=== PATIENT | male | born 1960 | race Caucasian/White ===

== ENCOUNTER → 2017-12-11 13:00 | Outpatient (CLI) | payer OTHER, SELFPAY | PROVIDERS: Family Provider Family Medicine; PCP Family Medicine | DX: Z23 Encounter for immunization (principal) | CPT/HCPCS: 90471; 90686 ==

== ENCOUNTER 2018-04-19 16:15 | Emergency (ER) | payer OTHER, SELFPAY ==
[2018-04-19 16:23] VITALS: BP 138/86; PULSE 79; RESP 16; TEMP 37; O2SAT 97; BMI 25.0
[2018-04-19] MEDS: TET,DIPH,PERTUSS(ACELL),VAC/PF 0.5 ML SYRINGE IM (17:20)
--- NOTE | 2018-04-19 18:34 | ED_ITS ---
HPI - Wound/Laceration General Chief Complaint: Wound/Laceration Stated Complaint: LACERATION OF THE FOREHEAD Time Seen by Provider: 04/19/18 18:34 Source: patient Mode of arrival: ambulatory Limitations: no limitations History of Present Illness HPI narrative: Patient is a 57-year-old male who earlier today was doing some sanding when the makayla hit a electrical box. The cover the electrical blocks came off and bounce off a wall and hit him in the forehead. This happened several hours ago. He does not know when his last tetanus shot was. Did not lose consciousness. Does have a cut on his forehead. Other than a bandage has not done anything for the cup prior to arrival. Related Data Previous Rx's Medication Instructions Recorded epinephrine 0 IM SEE INSTRUCTIONS #1 ea 11/06/12 Allergies Allergy/AdvReac Type Severity Reaction Status Date / Time No Known Drug Allergies Allergy Verified 04/19/18 16:20 Review of Systems Constitutional Denies fever(s) and Denies headache(s) Eyes Denies blurry vision ENT Ears, Nose, Mouth, and Throat: Denies dizziness and Denies headache(s) Integumentary/Breasts Comments: Cut to forehead Neurologic Denies dizziness and Denies headache(s) Hematologic/Lymphatic Comments: Not on blood thinners PFSH Medical History Healthy adult (Acute) Social History Smoking Status: Never smoker Social History Smoking Status: Never smoker Exam Initial Vital Signs Initial Vital Signs: Vital Signs Temperature 98.6 F 04/19/18 16:23 Pulse Rate 79 04/19/18 16:23 Respiratory Rate 16 04/19/18 16:23 Blood Pressure 138/86 04/19/18 16:23 Pulse Oximetry 97 04/19/18 16:23 Const General: cooperative, healthy appearing, comfortable, well developed, well groomed and No acute distress Orientation: alert, awake and oriented x3 HENMT Head: other (3 cm laceration to the right side of the forehead above the eye.) Ears: hearing grossly normal bilaterally Nose: external nose normal Resp Effort & Inspection: normal respiratory effort Cardio Rate: regular rate Skin Other: 3 cm laceration to the right-side forehead. Neuro Other: Sensation intact to the right side of the forehead. Patient able to do raise eyebrows without any problems. Eyelid not drooping on the right. Extrem General: normal to inspection and capillary refill normal Psych Appearance: grossly normal and well kempt Procedures Laceration Repair Laceration 1: Site: face (Forehead) Side (If applicable): right Size (cm): 3 Description: linear Depth: simple, single layer Local Anesthetic: lidocaine 1% Amount of anesthesia used (mL): 3 Pre-repair: irrigated extensively and deep structures intact Skin layer closed with: other (Chromic) Size (cm): 5-0 Number of sutures: 5 Technique: simple, interrupted Course Orders Ordered: Discontinued Medications Diphtheria/Tetanus/Acell Pertussis (Adacel) 0.5 ml IM .ONCE ONE Stop: 04/19/18 16:30 Last Admin: 04/19/18 17:20 Dose: 0.5 ml Vital Signs - 8 hr 04/19/18 16:23 Temperature 98.6 F Pulse Rate 79 Respiratory Rate 16 Blood Pressure 138/86 Pulse Oximetry 97 MDM - Wound/Laceration MDM Narrative Medical decision making narrative: Tetanus was updated. Patient is neurovascular intact. We discussed the options to include Dermabond and Steri- Strips versus suturing. Patient opted for suturing. He was informed there would be a scar. There is no signs of deep structure involvement. He was given care instructions and return precautions. He expressed understanding and agreement plan. Discharge Plan Departure Patient Disposition: Home Clinical Impression: Laceration Instructions: DI for Laceration Repair Activity Restrictions/Additional Instructions: Tomorrow you can shower like normal and use soap and water like normal. Do not scrub the area because the stitches are small. The stitches are absorbable hand should come out on their own however if they are not out by 7 days the do need to be removed. Return to the emergency department for any new or worsening symptoms Prescriptions: No Action epinephrine 0.3 MG/0.3 ML auto-injector IM SEE INSTRUCTIONS Qty: 1 RF: 2 Referrals: Mikael Birch MD [Primary Care Provider] -
[2018-04-19 19:17] VITALS: BP 151/97; PULSE 71; RESP 17; O2SAT 97
== END 2018-04-19 19:28 | disposition home or self-care (01) ==
PROVIDERS: Emergency Provider Emergency Medicine; Family Provider Family Medicine; PCP Family Medicine
DX: S01.81XA Laceration without foreign body of other part of head, initial encounter (principal); W22.8XXA Striking against or struck by other objects, initial encounter
CPT/HCPCS: 12013; 90471; 99283; 90715

== ENCOUNTER → 2018-11-28 12:06 | Outpatient (CLI) | payer OTHER, SELFPAY | PROVIDERS: PCP Student in an Organized Health Care Education/Training Program | DX: Z23 Encounter for immunization (principal) | CPT/HCPCS: 90471; 90686 ==

== ENCOUNTER → 2018-12-04 14:12 | Outpatient (CLI) | payer OTHER, SELFPAY ==
[2018-12-04 16:47] LABS: Vitamin D 25 Hydroxy (D3) 30.2 ng/mL (30.0-100.0)
[2018-12-04 17:01] LABS: HEMOLYSIS < 15 (0-50)
[2018-12-04 17:06] LABS: Alanine Aminotransferase 21 IU/L (21-72); Albumin 4.3 g/dL (3.5-5.0); Albumin Globulin Ratio 1.4 (1.0-2.8); Alkaline Phosphatase 60 U/L (38-126); Aspartate Aminotransferase 25 IU/L (17-59); Bilirubin Total 0.6 mg/dL (0.2-1.3); Bilirubin Unconjugated 0.5 mg/dL (0.0-1.1); Cholesterol 229 mg/dL (140-199); HDL Cholesterol 44 mg/dL (40-60); LDL Cholesterol Calculated 139 mg/dL (<100); Total Protein 7.3 g/dL (6.3-8.2); Triglycerides 230 mg/dL (35-150)
[2018-12-05 15:42] LABS: Prostate Specific Antigen Scrn 0.377 ng/mL (0.1-4.0)
== END ==
PROVIDERS: PCP Student in an Organized Health Care Education/Training Program; Visit Provider Student in an Organized Health Care Education/Training Program
DX: Z12.5 Encounter for screening for malignant neoplasm of prostate (principal); Z13.220 Encounter for screening for lipoid disorders; E55.9 Vitamin D deficiency, unspecified; E78.2 Mixed hyperlipidemia
CPT/HCPCS: 36415; 80061; 80076; 82306; G0103

== ENCOUNTER 2019-02-21 09:59 | Emergency (ER) | payer OTHER, SELFPAY ==
[2019-02-21 10:05] VITALS: BP 145/89; PULSE 72; RESP 12; TEMP 36.4; O2SAT 97
[2019-02-21] MEDS: IBUPROFEN 400 MG TABLET 800 MG PO (10:13)
[2019-02-21] MEDS: ACETAMINOPHEN 325 MG TABLET 975 MG PO (10:13)
--- NOTE | 2019-02-21 10:47 | ED_ITS ---
HPI - Back Pain/Injury General Chief Complaint: Back Pain/Injury Stated Complaint: Hurt his back at work Time Seen by Provider: 02/21/19 10:47 Source: patient Limitations: no limitations History of Present Illness HPI Narrative: This is a 58-year-old male who comes to the emergency with complaint of midthoracic upper lumbar back pain. Patient was at work about 8 or 9:00 a.m. this morning. He was lifting a desk that was moderately heavy but also awkward up into a truck. The bottom of the does cough on the truck and he tried to lift a little bit higher he felt a sudden spasm in his back across both sides. Patient states he doesn't have any radiation down into his legs. No numbness, no tingling. Movement does make it worse. He has not any loss of bowel or bladder control. No fevers. He denies any other symptoms. He has had very remote history of back issues many years ago. He has not had problems in many many years. Patient denies any prior surgeries. He has a bee allergy but no other medication allergies. He is not on any regular medications daily. Related Data Home Medications Medication Instructions Recorded Confirmed epinephrine 0.3 mg IM PRN PRN 02/21/19 02/21/19 Previous Rx's Medication Instructions Recorded cyclobenzaprine 10 mg PO TID PRN #20 tab 02/21/19 Allergies Allergy/AdvReac Type Severity Reaction Status Date / Time No Known Drug Allergies Allergy Verified 02/21/19 10:08 wasp venom Allergy Intermediate Uncoded 12/03/18 09:10 Review of Systems Review of Systems ROS Unobtainable: All systems reviewed & are unremarkable except as noted in HPI and below Patient History Medical History Chicken pox (Resolved) Healthy adult (Acute) Hearing loss (Chronic) Measles (Resolved) Mumps (Resolved) Surgical History Anesthesia (Resolved) History of appendectomy (Resolved ~07/1975) History of hernia repair (Resolved ~06/2009) History of left knee surgery (Resolved ~01/2015) History of neck surgery (Resolved ~10/2007) History of right knee surgery (Inactive ~05/2016) Family History Father History of coronary artery bypass graft Congestive heart failure Anemia Pacemaker Cancer Diabetes mellitus History of heart disease Hyperlipidemia Hypertension Mother Cataracts, bilateral Hypertension Hyperlipidemia Brother Obesity Brother Neurologic disorder Sister Adopted Grandfather Diabetes mellitus Grandmother Cancer Daughter Asthma Anxiety Daughter Thyroid disorder Social History Smoking Status: Never smoker Smoking Status: Never smoker alcohol intake frequency: 0-2 drinks per day Substance Use Type: does not use Exam Narrative Exam Narrative: GENERAL: Alert and oriented x three, well-nourished, well- appearing male in mild to moderate distress. HEENT: Head normocephalic, atraumatic, EOMI, pupils reactive, face symmetric, moist mucous membranes NECK: Supple, full range of motion CARDIOVASCULAR: Regular rate and rhythm without murmurs, rubs or gallops. RESPIRATORY: Breath sounds equal bilaterally, no wheezes rales or rhonchi. ABDOMEN: Soft, nontender. Normoactive bowel sounds all 4 quadrants. No guarding or rebound, rigidity, no mass : No CVA tenderness BACK: No cervical, thoracic or lumbar vertebral point tenderness. Patient has decreased range of motion. Patient prefers to sit very upright. Patient's gait is not tested. Rectal exam is deferred. Muscle strength is 5/5 in lower extremities with full plantar and dorsiflexion. Dorsalis pedis and tibialis pulses are 2+ and lower extremities. Sensation is intact in the lower extremities. EXTREMITIES: Normal range of motion, no clubbing or edema. Neurovascularly intact NEUROLOGICAL: Cranial nerves II through XII grossly intact. Moving all extremities SKIN: Warm, dry, no petechiae, no rashes or lesions. Initial Vital Signs Initial Vital Signs: Vital Signs Temperature 97.6 F 02/21/19 10:05 Pulse Rate 72 02/21/19 10:05 Respiratory Rate 12 02/21/19 10:05 Blood Pressure 145/89 H 02/21/19 10:05 Pulse Oximetry 97 02/21/19 10:05 Course Orders Ordered: ED Orders 02/21/19 11:00 XR t and l spine 2 to 3 views Stat Discontinued Medications Acetaminophen (Tylenol) 975 mg PO NOW ONE Stop: 02/21/19 10:09 Last Admin: 02/21/19 10:13 Dose: 975 mg Documented by: STONE Ibuprofen (Advil) 800 mg PO NOW ONE Stop: 02/21/19 10:09 Last Admin: 02/21/19 10:13 Dose: 800 mg Documented by: STONE Vital Signs Vital signs: Vital Signs - 8 hr 02/21/19 10:05 Temperature 97.6 F Pulse Rate 72 Respiratory Rate 12 Blood Pressure 145/89 H Pulse Oximetry 97 MDM - Back Pain/Injury Imaging Data thoracolumbar xray: Radiologist's Impression: [address] [address] XRay Report Signed Patient: Teddy Church PMR#: [id number] : [id number]:[id number] Age/Sex: 58 / MDate of Service: 02/21/19 Loc: ED Accession Number: [id number] Procedure: XR t and l spine 2 to 3 views Ordering Provider: Diya Mckinnon D.O. PROCEDURE: XR T AND L SPINE 2 TO 3 VIEWS INDICATIONS: mid back pain, lifting desk TECHNIQUE: 2 views acquired of the thoracolumbar spine. COMPARISON: [facility], THORACIC SPINE 3 VIEWS, 01/14/2008, 13:39. FINDINGS: Bones: No acute fractures or dislocations. Visualized inferior ribs appear intact. No suspicious bony lesions. Soft tissues: No suspicious soft tissue calcifications. IMPRESSION: No evidence acute bony abnormality of the thoracolumbar spine. If clinical suspicion and/or symptoms persist, further assessment with repeat plain films, or advanced imaging (e.g., CT, MRI, or bone scan) may be helpful for further assessment. Dictated by: Nabil Thomas M.D. on 02/21/2019 at 11:37 Approved by: Nabil Thomas M.D. on 02/21/2019 at 11:37 [facility] Narrative Medical decision making narrative: Patient had tylenol and ibuprofen and has had some improvement along with ice pack. Defers any additional meds at this time. Plan for conservative management, NSAIDs and Tylenol as needed along with muscle relaxer as needed. Red flag symptoms were discussed and reasons to return emergently. L&I form filled out. Discharge Plan Departure Patient Disposition: Home Clinical Impression: Back pain, thoracic Discharge Date/Time: 02/21/19 12:06 Instructions: DI for Back Spasm, DI for Back Strain or Sprain Activity Restrictions/Additional Instructions: Follow up with L& I in the next 7-10 days if symptoms are not improving. Continue ibuprofen 800 mg every 8 hours and/or Tylenol a 1000 mg every 8 hours as needed for pain. Take muscle relaxer with medication. This medication can make you sleepy so do not drive, perform hazardous activities or make any major decisions while taking this medication. Your prescription was sent to [facility]. Return to the ER for fevers greater 100.4 F, rapidly worsening symptoms, loss of bowel or bladder control, numbness or weakness radiating down your legs, inability to lift or move your foot, or other new or concerning symptoms. Prescriptions: New cyclobenzaprine 10 mg tablet 10 mg PO TID PRN (Reason: muscle spasm) Qty: 20 RF: 0 No Action epinephrine 0.3 MG/0.3 ML auto-injector 0.3 mg IM PRN PRN (Reason: Allergic Reaction) RF: 0 Referrals: Jayesh Chu MD [Primary Care Provider] - Stand Alone Forms: Work Release Note
--- NOTE | 2019-02-21 11:00 | DI.RAD.S_ITS ---
PROCEDURE: XR T AND L SPINE 2 TO 3 VIEWS INDICATIONS: mid back pain, lifting desk TECHNIQUE: 2 views acquired of the thoracolumbar spine. COMPARISON: [facility], , THORACIC SPINE 3 VIEWS, 01/14/2008, 13:39. FINDINGS: Bones: No acute fractures or dislocations. Visualized inferior ribs appear intact. No suspicious bony lesions. Soft tissues: No suspicious soft tissue calcifications. IMPRESSION: No evidence acute bony abnormality of the thoracolumbar spine. If clinical suspicion and/or symptoms persist, further assessment with repeat plain films, or advanced imaging (e.g., CT, MRI, or bone scan) may be helpful for further assessment. Dictated by: Nabil Thomas M.D. on 02/21/2019 at 11:37 Approved by: Nabil Thomas M.D. on 02/21/2019 at 11:37
== END 2019-02-21 12:06 | disposition home or self-care (01) ==
PROVIDERS: Emergency Provider Emergency Medicine; PCP Student in an Organized Health Care Education/Training Program
DX: M62.830 Muscle spasm of back (principal); M54.6 Pain in thoracic spine; X50.0XXA Overexertion from strenuous movement or load, initial encounter; Y99.0 Civilian activity done for income or pay
CPT/HCPCS: 72082; 99283

== ENCOUNTER → 2019-12-04 01:38 | Outpatient (CLI) | payer OTHER, SELFPAY | PROVIDERS: PCP Student in an Organized Health Care Education/Training Program; Referring Provider Internal Medicine; Visit Provider Internal Medicine | DX: Z23 Encounter for immunization (principal) | CPT/HCPCS: 90471; 90686 ==

== ENCOUNTER → 2020-04-29 14:57 | Outpatient (CLI) | payer OTHER, SELFPAY ==
[2020-04-29] MEDS: COVID-19 VACC, Ad26(JANSSEN)/PF 0.5 ML IM (15:07)
== END ==
PROVIDERS: PCP Student in an Organized Health Care Education/Training Program; Visit Provider Internal Medicine
DX: Z23 Encounter for immunization (principal)
CPT/HCPCS: 0031A; 91303

== ENCOUNTER → 2020-05-12 11:01 | Outpatient (CLI) | payer OTHER, SELFPAY ==
[2020-05-12 13:43] LABS: COVID19 -Nasal RAPID Negative (Negative)
== END ==
PROVIDERS: PCP Student in an Organized Health Care Education/Training Program; Visit Provider Student in an Organized Health Care Education/Training Program
DX: Z20.822 Contact with and (suspected) exposure to COVID-19 (principal)
CPT/HCPCS: 87635

== ENCOUNTER → 2020-06-10 10:42 | Outpatient (CLI) | payer OTHER, SELFPAY ==
--- NOTE | 2020-06-10 | DI.RAD.S_ITS ---
PROCEDURE: FL ARHTROGRAM KNEE RT INDICATIONS: Internal derangement of right knee COMPARISON: None. TECHNIQUE: The indications, alternatives, benefits, risks, and complications of the procedure were explained to the patient. Written informed consent was obtained and placed in the chart. The knee was examined fluoroscopically, and a site chosen for knee joint injection. The skin was prepped and draped in a sterile fashion, and 1% Lidocaine infiltrated from the skin down to the articular surface. A hypodermic needle was then introduced into the joint and iodinated contrast media was instilled to confirm the intra-articular needle tip placement. This was followed by approximately 50 mL dilute solution of a gadolinium containing MR contrast agent. The needle was removed and a bandage was applied. An Elbert wrap was then applied around the knee joint to keep the contrast from collecting in the suprapatellar recess. The patient experienced no complications throughout the procedure and left the fluoroscopic suite in no apparent distress. FINDINGS: Single fluoroscopic spot image demonstrates intra-articular location to injected iodinated contrast. IMPRESSION: Successful fluoroscopically guided administration of dilute Gadolinium solution into the knee joint for MR arthrogram. Dictated by: Jillian Hendrickson MD, PhD on 06/10/2020 at 12:04 Approved by: Jillian Hendrickson MD, PhD on 06/10/2020 at 12:05
--- NOTE | 2020-06-10 10:46 | DI.MRI.S_ITS ---
PROCEDURE: MR KNEE RT W CON INDICATIONS: twisted knee, r/o internal derrangement, h/o meniscus repair TECHNIQUE: After the administration of 50 mL of dilute intra-articular Gadolinium contrast, sagittal T1 spin echo with fat saturation and PD fast spin echo with fat saturation, coronal T1 spin echo with and without fat saturation, coronal T2 fast spin echo with fat saturation, axial PD fast spin echo with fat saturation through the knee. COMPARISON: [facility], MR, KNEE WITHOUT CONTRAST, 05/24/2016, 18:50. [facility], MR, KNEE WITHOUT CONTRAST, 12/18/2014, 19:11. FINDINGS: Image quality: Excellent. Menisci: There is prior medial partial meniscectomy with slightly truncated appearing medial meniscus. No area of abnormal contrast extension is seen to suggest recurrent tear. Lateral meniscus is intact. The meniscal root ligaments appear intact. Cruciate ligaments: The anterior and posterior cruciate ligaments appear intact. Medial structures: Mildly thickened MCL is seen suggestive of low-grade MCL sprain. The posterior oblique ligament, semimembranosus tendon insertions, oblique popliteal ligament, and meniscocapsular junction appear intact. Visualized portions of the pes anserinus tendons appear normal. No abnormal bursal fluid. Lateral structures: The lateral collateral ligament, long and short heads of the biceps femoris tendon appear intact. The popliteus tendon appears normal; the popliteofibular ligament appears intact. The posterosuperior and anteroinferior popliteomeniscal fascicles appear intact. The arcuate and fabellofibular ligaments appear intact around the lateral inferior geniculate artery. Iliotibial band appears normal. Anterior structures: The quadriceps and patellar tendons appear intact. Patellar alignment is normal. No femoral trochlear dysplasia or ventral trochlear prominence. No edema in the infrapatellar fat pad. Bone and cartilage: No bone marrow contusions or fractures. Low-grade chondromalacia involving weight-bearing portion of medial femoral condyle is seen. Moderate grade chondromalacia involving lateral facet of patella cartilage near apex is seen. Joint space: No Enciso's cyst. Normal appearing synovial plicae are incidentally noted. No intra-articular bodies. IMPRESSION: 1. Prior partial medial meniscectomy. No evidence of recurrent tear. Lateral meniscus is intact. 2. Cruciate ligaments are intact. Low-grade MCL sprain. 3. 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 Focal moderate grade chondromalacia patella involving lateral facet of patella cartilage near apex. No marrow edema. No fracture or dislocation. Dictated by: Keo Hutchison M.D. on 06/10/2020 at 12:53 Approved by: Keo Hutchison M.D. on 06/10/2020 at 12:59
== END ==
PROVIDERS: PCP Student in an Organized Health Care Education/Training Program; Referring Provider Student in an Organized Health Care Education/Training Program; Visit Provider Orthopaedic Surgery
DX: S89.91XA Unspecified injury of right lower leg, initial encounter (principal); S86.911A Strain of unspecified muscle(s) and tendon(s) at lower leg level, right leg, initial encounter; S83.411A Sprain of medial collateral ligament of right knee, initial encounter; M22.41 Chondromalacia patellae, right knee; X50.0XXA Overexertion from strenuous movement or load, initial encounter
CPT/HCPCS: 27369; 27370; 73580; 73722; 77002

== ENCOUNTER → 2021-01-06 13:56 | Outpatient (CLI) | payer OTHER, SELFPAY | PROVIDERS: PCP Student in an Organized Health Care Education/Training Program; Referring Provider Internal Medicine; Visit Provider Internal Medicine | DX: Z23 Encounter for immunization (principal) | CPT/HCPCS: 90471; 90686 ==

== ENCOUNTER → 2021-01-12 16:40 | Outpatient (CLI) | payer OTHER, SELFPAY ==
[2021-01-12 18:28] LABS: COVID19 -Nasal RAPID POSITIVE (Negative)
== END ==
PROVIDERS: PCP Student in an Organized Health Care Education/Training Program; Visit Provider Nurse Practitioner Family
DX: U07.1 COVID-19 (principal); Z20.822 Contact with and (suspected) exposure to COVID-19
CPT/HCPCS: 87635

== ENCOUNTER → 2021-12-30 13:18 | Outpatient (CLI) | payer OTHER, SELFPAY | PROVIDERS: PCP Student in an Organized Health Care Education/Training Program; Referring Provider Internal Medicine; Visit Provider Internal Medicine | DX: Z23 Encounter for immunization (principal) | CPT/HCPCS: 90471; 90686 ==

== ENCOUNTER → 2022-12-29 08:16 | Outpatient (CLI) | payer OTHER, SELFPAY | PROVIDERS: PCP Student in an Organized Health Care Education/Training Program; Referring Provider Family Medicine; Visit Provider Family Medicine | DX: Z23 Encounter for immunization (principal) | CPT/HCPCS: 90471; 90686 ==

== ENCOUNTER → 2023-04-24 08:46 | Outpatient (CLI) | payer OTHER, SELFPAY ==
--- NOTE | 2023-04-24 08:47 | DI.US.S_ITS ---
PROCEDURE: US ABDOMEN LIMITED INDICATIONS: LEFT GROIN PAIN. HISTORY OF LEFT GROIN HERNIA REPAIR. TECHNIQUE: Real-time focused scanning was performed of the abdomen, with image documentation. COMPARISON: None. FINDINGS: There is no sonographic evidence for recurrence left inguinal hernia despite provocative maneuvers. IMPRESSION: No sonographic evidence for recurrent left inguinal hernia. Dictated by: Nichol Hunter M.D. on 04/24/2023 at 11:13 Approved by: Nichol Hunter M.D. on 04/24/2023 at 11:14
== END ==
LOC: US 08:46
PROVIDERS: PCP Family Medicine; Referring Provider Family Medicine; Visit Provider Family Medicine
DX: R10.32 Left lower quadrant pain (principal)
CPT/HCPCS: 76705

== ENCOUNTER → 2023-04-27 08:08 | Outpatient (CLI) | payer OTHER, SELFPAY ==
[2023-04-27 08:38] LABS: Add Manual Diff / Slide Review NO; Basophils Absolute Auto 0 /uL (0-100); Basophils Percent Auto 0.5 % (0-2); Eosinophils Absolute Auto 0 /uL (0-450); Hemoglobin 15.3 g/dL (13.5-17.5); Lymphocytes Absolute Auto 1700 /uL (1100-4500); Lymphocytes Percent Auto 36.4 % (25-40); Mean Corpuscular HGB Conc 34.7 % (30-36); Mean Corpuscular Hemoglobin 31.2 PG (26-34); Mean Corpuscular Volume 89.8 fL (80-100); Monocytes Absolute Auto 400 /uL (0-900); Monocytes Percent Auto 9.5 % (3-14); Neutrophils Absolute Auto 2400 /uL (1500-7000); Neutrophils Percent Auto 52.6 % (50-75); Platelet Count 191 X10^3/uL (150-400); Red Cell Distribution Width 12.3 % (11.6-14.8); White Blood Cell Count 4.6 X10^3/uL (4.5-11.0)
[2023-04-27 09:09] LABS: Alanine Aminotransferase 19 IU/L (<50); Albumin 4.2 g/dL (3.5-5.0); Albumin Globulin Ratio 1.4 (1.0-2.8); Alkaline Phosphatase 62 U/L (38-126); Aspartate Aminotransferase 24 IU/L (17-59); BUN Creatinine Ratio 18.6 (6-22); Blood Urea Nitrogen 16 mg/dL (9-20); Calcium 9.5 mg/dL (8.4-10.2); Carbon Dioxide 29 mmol/L (22-32); Chloride 107 mmol/L (98-107); Cholesterol 199 mg/dL (140-199); Estimated Glomerular Filt Rate > 60 mL/min (>60); Globulin 3.1 g/dL (1.7-4.1); Glucose 87 mg/dL (80-110); HDL Cholesterol 42 mg/dL (40-60); HEMOLYSIS < 15 (0-50); LDL Cholesterol Calculated 138 mg/dL (<100); Potassium 4.2 mmol/L (3.4-5.1); Sodium 142 mmol/L (137-145); Total Protein 7.3 g/dL (6.3-8.2); Triglycerides 96 mg/dL (35-150)
== END ==
LOC: LAB 08:09
PROVIDERS: PCP Family Medicine; Referring Provider Family Medicine; Visit Provider Family Medicine
DX: E78.5 Hyperlipidemia, unspecified (principal); D64.9 Anemia, unspecified; Z13.9 Encounter for screening, unspecified; Z12.5 Encounter for screening for malignant neoplasm of prostate; E87.8 Other disorders of electrolyte and fluid balance, not elsewhere classified
CPT/HCPCS: 36415; 80053; 80061; 85025; G0103

== ENCOUNTER 2023-05-15 10:16 | Day surgery (SDC) | payer OTHER, SELFPAY ==
--- NOTE | 2023-05-15 | PATH_ITS ---
[facility] Accession Number: [id number] No. of containers..01 Tissue . 01 Material submitted: . rectum - RECTAL POLYP . 01 Diagnosis: RECTAL POLYP: Tubular adenoma. STO 05/18/20230 Local . 01 Electronically signed: . Russ Weaver MD, Pathologist NPI- [id number] . 01 Gross description: . RECTAL POLYP: Received in formalin are 4 fragment(s) of ibanez, soft tissue measuring 0.1 x 0.1 x 0.1 cm to 0.6 x 0.6 x 0.4 cm submitted entirely in 1 cassette(s) /BLAYNE 05/18/20231699 Local . 01 Pathologist provided ICD-10: D12.8 . 01 CPT . 197422 Specimen Comment: A courtesy copy of this report has been sent to [phone] Performed at: 01 [facility] [address] [place] [address], [place], [place] [id number] MD Russ Weaver MD Phone: [phone]
[2023-05-15] MEDS: LACTATED RINGERS 1,000 ML 42 ML IV (10:43)
[2023-05-15 10:58] VITALS: BP 128/95; PULSE 73; RESP 16; TEMP 36.5; O2SAT 99
--- NOTE | 2023-05-15 12:05 | PM.HP.1 ---
History of Present Illness History of Present Illness Date Patient Seen: 05/15/23 Time Patient Seen: 12:05 Chief complaint: Colonoscopy Narrative: 60-year-old male here for screening colonoscopy. Last colonoscopy over 5 years ago. No family history of intestinal malignancy. No abdominal concerns today. [facility] Medical History Hyperlipidemia Musculoskeletal problem Strain of right knee Right knee injury Mumps Measles Chicken pox Hearing loss Healthy adult Surgical History Anesthesia History of right knee surgery (~05/2016) History of left knee surgery (~01/2015) History of hernia repair (~06/2009) History of neck surgery (~10/2007) History of appendectomy (~07/1975) Family History Father History of coronary artery bypass graft Congestive heart failure Anemia Pacemaker Cancer Diabetes mellitus History of heart disease Hyperlipidemia Hypertension Mother Cataracts, bilateral Hypertension Hyperlipidemia Brother Obesity Brother Neurologic disorder Sister Adopted Grandfather Diabetes mellitus Grandmother Cancer Daughter Asthma Anxiety Daughter Thyroid disorder Social History Smoking Status: Never smoker alcohol intake: never substance use type: does not use Meds Home Medications and Allergies Home Medications Medication Instructions Recorded Confirmed Type No Known Home Medications 04/20/23 04/20/23 History Allergies Allergy/AdvReac Type Severity Reaction Status Date / Time No Known Drug Allergies Allergy Verified 05/15/23 10:53 wasp venom Allergy Intermediate Uncoded 05/15/23 10:53 Exam Vital Signs (past 8 hours): - 05/15/23 10:58 Temperature 97.7 F Pulse Rate 73 Respiratory Rate 16 Blood Pressure 128/95 H Pulse Oximetry 99 Oxygen Delivery Method Room Air Oxygen Delivery Method Room Air Narrative Exam Narrative: General adult man alert oriented no acute distress Chest nonlabored respiration Extremities warm well perfused Assessment & Plan Assessment & Plan narrative: The patient requires colorectal screening and colonoscopy is recommended. Technical details were discussed. Risks, benefits, alternatives explained. Risks including but not limited to myocardial infarction, aspiration, bleeding, pain, missed lesion, incomplete examination, need for further radiographic studies, colonic perforation, and need for major abdominal surgery were discussed. All questions were answered to their satisfaction, and they are in agreement with this plan.
[2023-05-15 12:40] VITALS: BP 120/77; PULSE 71; RESP 16; TEMP 36.6; O2SAT 96
[2023-05-15 12:45] VITALS: BP 121/80; PULSE 65; RESP 16; O2SAT 97
--- NOTE | 2023-05-15 12:45 | P.OP.COLON_ITS ---
Operative Date/Time/Diagnoses Date of procedure: 05/15/23 Time of procedure: 12:45 Pre-op diagnosis: Colorectal screening Procedure & Clinicians Study performed: Colonoscopy and polypectomy Same procedure as scheduled: Yes Indications: Colorectal screening Surgeon: Marcelo Tran Procedure Notes Procedure in detail: The history and physical was performed/updated and the patient is ASA class is 2. The procedure was discussed in detail with the patient. Potential risks complications including infection, bleeding, missed diagnosis, perforation, need for surgery, and were explained. Their questions were answered and informed consent was obtained. Patient was brought to the procedure room and placed standard monitoring equipment. The patient's vital signs were monitored continuously throughout the entire procedure. Prior to starting time-out was performed. The patient was placed in the left lateral recumbent position. Procedural sedation was administered by anesthesia. Examination began with a thorough inspection of the perianal area there was no evidence of fissures, fistulae, external hemorrhoids or cutaneous malignancy. The colonoscopy scope was then placed into the anal canal and was advanced to the cecum, which was identified by the ileocecal valve, the appendiceal orifice and the confluence of the taenia. The scope was then slowly withdrawn examining colon thoroughly in all directions, irrigating it of any residual stool. The scope was retroflexed within the rectum The patient tolerated the procedure well. They will be discharged once criteria are met. The prep was of good/excellent quality. The withdrawl time was 7 mi nutes. FINDINGS * Rectum-3-5 mm polyps x2 removed with a combination of biopsy forceps and cold snare. * Mild diverticulosis of sigmoid colon Specimen(s): other (Rectal polyps x2) Impression: Colonic polyps x2 Post-procedure Recommendations: Will call with biopsy results Disposition: same day surgery
[2023-05-15 12:50] VITALS: BP 109/77; PULSE 77; RESP 10; O2SAT 99
[2023-05-15 12:55] VITALS: BP 130/89; PULSE 65; RESP 14; O2SAT 98
[2023-05-15 13:00] VITALS: BP 137/89; PULSE 66; RESP 14; TEMP 36.6; O2SAT 99
== END 2023-05-15 13:19 | disposition home or self-care (01) ==
PROVIDERS: PCP Family Medicine; Referring Provider Surgery; Visit Provider Surgery
PROC: 0DJD8ZZ Inspection of Lower Intestinal Tract, Via Natural or Artificial Opening Endoscopic (ICD-10-PCS; CPT 45378; principal; 2023-05-15 11:15)
DX: Z12.11 Encounter for screening for malignant neoplasm of colon (principal); K57.30 Diverticulosis of large intestine without perforation or abscess without bleeding; D12.8 Benign neoplasm of rectum
CPT/HCPCS: 45385; 45380; J2704

== ENCOUNTER → 2023-05-24 15:46 | Outpatient (CLI) | payer OTHER, SELFPAY ==
--- NOTE | 2023-05-24 15:48 | DI.CT.S_ITS ---
PROCEDURE: CT ABDOMEN PELVIS WO CON INDICATIONS: Left lower abdominal pain TECHNIQUE: Axial sections were acquired from the lung bases to the pubic symphysis. Coronal and sagittal reformats were performed. For radiation dose reduction, the following was used: automated exposure control, adjustment of mA and/or kV according to patient size. COMPARISON: None. FINDINGS: Image quality: Diagnostic. Evaluation of the visceral organs is limited due to the lack of intravenous contrast. Lower Chest: No significant findings. URINARY: Right Kidney: No stones or hydronephrosis. Right Ureter: No hydroureter. Left Kidney: No stones or hydronephrosis. Left Ureter: No hydroureter. Bladder: Normal wall thickness. No stones. ABDOMEN: Liver: No contour-deforming solid mass. Gallbladder: No radiopaque gallstones or wall thickening. Biliary ducts: No biliary dilation. Pancreas: No ductal dilation. Spleen: Size is within normal limits. Adrenal Glands: No adrenal nodules. Stomach and Bowel: No hiatal hernia. Stomach is decompressed, limiting evaluation, but appears grossly normal. Small and large bowel is normal in caliber, without obstruction. Appendix is not well seen; however, no acute inflammatory signs in the right lower quadrant. A few scattered sigmoid and colonic diverticuli, without diverticulitis. Above average colonic stool burden. Peritoneum: No abnormal intraperitoneal fluid. No free air. Ventral Wall: No hernia. Abdominal Nodes: No enlarged retroperitoneal or mesenteric lymph nodes. Vessels: Aorta and inferior vena cava are normal in size. Mild to moderate atherosclerotic calcification of the abdominal aorta and iliac vasculature. PELVIS: Pelvic Organs: Unremarkable. Pelvic Nodes: Unremarkable. Miscellaneous: No inguinal hernias are seen. Postsurgical changes of left inguinal hernia repair. No fluid collection. Bones: No acute fracture. No appearing lytic or blastic osseous lesion. Grade 1 anterolisthesis of L5 on S1 with bilateral pars defects. IMPRESSION: 1. No acute pathology in the abdomen or pelvis. No obstructing stones or hydronephrosis. 2. Postsurgical changes of left inguinal hernia repair with no evidence of recurrence or fluid collection. 3. Sigmoid and colonic diverticulosis without diverticulitis. 4. Above average colonic stool burden suggestive of constipation. Dictated by: Mariana Zee M.D. on 05/24/2023 at 17:36 Approved by: Mariana Zee M.D. on 05/24/2023 at 17:48
== END ==
LOC: CT 15:47
PROVIDERS: PCP Family Medicine; Referring Provider Family Medicine; Visit Provider Family Medicine
DX: K57.30 Diverticulosis of large intestine without perforation or abscess without bleeding (principal); I70.0 Atherosclerosis of aorta; Z87.19 Personal history of other diseases of the digestive system; Z98.890 Other specified postprocedural states
CPT/HCPCS: 74176

== ENCOUNTER → 2023-08-15 17:02 | Outpatient (CLI) | payer OTHER, SELFPAY ==
--- NOTE | 2023-08-15 19:00 | DI.MRI.S_ITS ---
PROCEDURE: MR BRAIN (IAC) WWO CON INDICATIONS: Sensorineural hearing loss, unilateral, left ear, TECHNIQUE: Noncontrast sagittal T1 spin echo, axial FLAIR, axial gradient echo, axial diffusion and ADC through the brain. Axial thin-slice 3D CISS, coronal TruFISP, axial T1 spin echo with fat saturation through the internal auditory canals. After the administration of contrast, thin slice axial and coronal T1 spin echo with fat saturation through the internal auditory canals, and axial and coronal and sagittal T1 spin echo with fat saturation through the brain. COMPARISON: None. FINDINGS: Image quality: Excellent. Cerebellopontine angles: No cerebellopontine angle masses. Inner ear structures appear normally formed. No suspicious enhancement in the internal auditory canal or along the course of the 7th cranial nerve. CSF spaces: Ventricles are normal in size and shape. No extra-axial fluid collections. Basal cisterns are patent. Brain: No intracranial bleeds or mass effects. Mcadams-white matter interface is intact. No abnormal intracranial enhancement. Diffusion weighted images demonstrate no acute ischemic insults. Brainstem appears normal. Normal intravascular flow voids are present. Skull and face: Calvarial marrow signal is normal. Orbits appear normal. Sinuses: Sinuses and mastoids are clear. IMPRESSION: Unremarkable MRI of the brain and internal auditory canals. No evidence of vestibular schwannoma Approved by: Luis Suarez M.D. on 08/16/2023 at 12:39
== END ==
PROVIDERS: PCP Family Medicine; Referring Provider Otolaryngology; Visit Provider Otolaryngology
DX: H90.42 Sensorineural hearing loss, unilateral, left ear, with unrestricted hearing on the contralateral side (principal); H93.12 Tinnitus, left ear
CPT/HCPCS: 70553; A9579

== ENCOUNTER → 2023-12-14 | Outpatient (CLI) | payer OTHER, SELFPAY | PROVIDERS: PCP Family Medicine; Referring Provider Internal Medicine; Visit Provider Internal Medicine | DX: Z23 Encounter for immunization (principal) | CPT/HCPCS: 90471; 90656 ==